=== PATIENT | female | born 1950 | race Caucasian/White ===

== ENCOUNTER 2017-09-23 12:49 | Outpatient (CLI) ==
[2014-11-06 08:28] VITALS: BMI 32.5
--- NOTE | 2017-09-26 11:38 | MAMMO ---
EXAM: Bilateral digital screening mammogram History: Baseline screening Findings: MLO and CC views of bilateral breasts demonstrate scattered fibroglandular breast parenchy ma. CAD was reviewed by the radiologist. Tomosynthesis was performed. Benign bilateral vascular ca lcifications. There are no dominant masses, no suspicious microcalcifications and no architectural d istortions Impression: Benign mammogram. Recommend followup routine screening mammography in 1 year. BIRADS 2
== END 2017-09-23 12:50 | disposition home or self-care (01) ==
LOC: RAD 12:49
PROVIDERS: ATTEND Internal Medicine
DX: Z12.31 Encounter for screening mammogram for malignant neoplasm of breast (principal)
CPT/HCPCS: 77067

== ENCOUNTER 2019-01-29 03:36 | Emergency (ER) ==
[2019-01-29 03:46] VITALS: BP 137/77; TEMP 98.6; BMI 28.5
[2019-01-29] MEDS ORDERED: SODIUM CHLORIDE 1,000 ML IV STA ×2 (04:07→05:38)
[2019-01-29] MEDS ORDERED: MORPHINE 2 MG/ML SYRINGE IVP STA (04:07)
[2019-01-29] MEDS ORDERED: ZOFRAN 4 MG/2 ML IVP STA (04:07)
--- NOTE | 2019-01-29 05:10 | CT ---
Exam: CT of the abdomen and pelvis without contrast History: Abdominal pain Technique: [address] of the abdomen and pelvis without intravascular contrast FINDINGS: The lung bases are clear. No significant liver abnormality. The adrenals, pancreas and s pleen are unremarkable. The stomach and hiatus are unremarkable.Prior cholecystectomy. Kidneys and proximal collecting system are unremarkable. The appendix is not seen. The cecum is mobile and loca darrell just right of midline. There is mild fluid distension of small intestine and colon. Atheroscler otic calcification of the aorta without aneurysm. Abundance of central mesenteric lymph nodes withou t pathologic enlargement. Prior hysterectomy. Nondistended urinary bladder. Fluid distension of sigmoid colon. No pelvic fat inflammation. No acute findings of the skeleton. Impression: 1. No bowel or urinary obstruction is seen. 2. Mild fluid distension of colon and small intestine, nonspecific. Correlate for possible enteriti s and diarrhea. 3. Abundance of mesenteric lymph nodes without pathologic enlargement, nonspecific. Similar finding s on 11/06/2014.
[2019-01-29] MEDS ORDERED: DILAUDID 0.5 MG/0.5 ML SYRINGE IVP STA (05:38)
--- NOTE | 2019-01-29 05:54 | ED.PDOC ---
General ED Provider: Dr. KELTON CARMONA-ER Chief Complaint: Diarrhea Stated Complaint: dakotah had nausea and diarrrhea and my belly hurts Time Seen by Physician: 03:40 Mode of Arrival: Walk-In Information Source: Patient Exam Limitations: No limitations Primary Care Provider: ADELINA GILL Nursing and Triage Documentation Reviewed and Agree: Yes Does patient meet sepsis criteria?: No System Inflammatory Response Syndrome: Not Applicable Sepsis Protocol: For patient's 13 years and over: Temp is 96.8 and below OR 101 and greater Pulse >90 BPM Resp >20/minute Acutely Altered Mental Status Are patient's symptoms suggestive of a new infection, such as: -Pneumonia -Skin, Soft Tissue -Endocarditis -UTI -Bone, Joint Infection -Implantable Device -Acute Abdominal Infection -Wound Infection -Meningitis -Blood Stream Catheter Infection -Unknown GI Complaint Exam - Vomiting/Diarrhea Complaint/Exam Onset/Duration: for several hours Symptoms Are: Still present Episodes of Vomiting over last 24 Hours: 0 Initial Severity: Mild Current Severity: Moderate Character of Diarrhea: Reports: Watery Aggravating: Reports: Food Alleviating: Reports: None Associated Signs and Symptoms: Reports: Abdominal pain, Cramping Recent Positive Test: No Non-GI Risk Factors: Reports: None Surgical Obstruction Risk Factors: Reports: None Abdominal Findings: Present: None Differential Diagnoses: Dehydration, Viral Gastroenteritis, Bacterial Gastroenteritis Review of Systems - Review Of Systems Constitutional: Reports: No symptoms Eyes: Reports: No symptoms Ears, Nose, Mouth, Throat: Reports: No symptoms Respiratory: Reports: No symptoms Cardiac: Reports: No symptoms GI: Reports: Abdominal pain, Diarrhea, Nausea : Reports: No symptoms Musculoskeletal: Reports: No symptoms Skin: Reports: No symptoms Neurological: Reports: No symptoms Endocrine: Reports: No symptoms Hematologic/Lymphatic: Reports: No symptoms All Other Systems: Reviewed and Negative Past Medical History - Past Medical History Previously Healthy: Yes Endocrine: Reports: Unknown Cardiovascular: Reports: Unknown Respiratory: Reports: Unknown Hematological: Reports: Unknown Gastrointestinal: Reports: Unknown Genitourinary: Reports: Unknown Neuro/Psych: Reports: Unknown Musculoskeletal: Reports: Unknown Cancer: Reports: Unknown Last Menstrual Period: UNKNOWN - Surgical History General Surgical History: Reports: Unknown - Family History Family History: Reports: Unknown - Social History Smoking Status: Never smoker Hx Substance Use: No Alcohol Screening: Occasionally - Immunizations Tetanus Shot up to Date: (UNKNOWN) Physical Exam - Physical Exam Appearance: Well-appearing, No pain distress, Well-nourished Eyes: JOYCE, EOMI, Conjunctiva clear ENT: Ears normal, Nose normal, Oropharynx normal Neck: Supple Respiratory: Airway patent, Breath sounds clear, Breath sounds equal, Respirations nonlabored Cardiovascular: RRR GI/: Soft, Nontender, No masses, Bowel sounds normal, No Organomegaly Musculoskeletal: Normal strength, ROM intact, No edema, No calf tenderness Skin: Warm, Dry, Normal color Neurological: Sensation intact, Motor intact, Reflexes intact, Cranial nerves intact, Alert, Oriented Psychiatric: Affect appropriate, Mood appropriate Interpretation - Radiology Interpretation Radiology Interpretation By: Radiologist Radiology Results: Negative Exam Interpreted: CT Scan - EKG Interpretation Time of EKG #1: 05:54 Rate: Normal Rhythm: Sinus Ectopy: None Wall: NL ST Segment: Normal Interpretation: nsr Re-Evaluation - Re-Evaluation Time of Re-Evaluation: 05:54 Status: Improved Vital Signs Stable: Yes Pain Level: 1 Appearance: NAD Lungs: Clear Skin: Warm and Dry Neuro: Alert and Oriented X3 CV: RRR Critical Care Note - Critical Care Note Total Time (mins): 0 Course - Course Hematology/Chemistry: 01/29/19 04:15 01/29/19 04:45 Orders, Labs, Meds: Lab Review 01/29/19 01/29/19 01/29/19 03:55 04:15 04:40 WBC 7.81 RBC 4.73 Hgb 13.8 Hct 41.7 MCV 88.2 MCH 29.2 MCHC 33.1 RDW Coeff of Malcom 13.5 Plt Count 192 Immature Gran % (Auto) 0.3 Neut % (Auto) 65.2 Lymph % (Auto) 21.5 Emmons % (Auto) 11.9 H Eos % (Auto) 0.8 Baso % (Auto) 0.3 Immature Gran # (Auto) 0.0 Neut # (Auto) 5.1 Lymph # (Auto) 1.7 Emmons # (Auto) 0.9 Eos # (Auto) 0.1 Baso # (Auto) 0.0 Sodium Potassium Chloride Carbon Dioxide Anion Gap BUN Creatinine Estimated GFR (MDRD) BUN/Creatinine Ratio Glucose Calcium Total Bilirubin AST ALT Alkaline Phosphatase Total Creatine Kinase Troponin I Total Protein Albumin Globulin Albumin/Globulin Ratio Amylase Lipase Urine Color Yellow Urine Clarity Cloudy Urine pH 5.0 Ur Specific Carson 1.025 Urine Protein Trace Urine Glucose (UA) Negative Urine Ketones 1+ Urine Blood Negative Urine Nitrite Negative Urine Bilirubin 1+ Urine Urobilinogen 0.2 Ur Leukocyte Esterase 1+ Urine Microscopic RBC 0-2 Urine Microscopic WBC 2-5 Ur Squamous Epith Cells 5-10 Amorphous Sediment Trace Urine Bacteria Trace Urine Mucus Trace Influ A Molecular Assay Negative by naat Influ B Molecular Assay Negative by naat 01/29/19 04:45 WBC RBC Hgb Hct MCV MCH MCHC RDW Coeff of Malcom Plt Count Immature Gran % (Auto) Neut % (Auto) Lymph % (Auto) Emmons % (Auto) Eos % (Auto) Baso % (Auto) Immature Gran # (Auto) Neut # (Auto) Lymph # (Auto) Emmons # (Auto) Eos # (Auto) Baso # (Auto) Sodium 139.2 Potassium 4.24 Chloride 102.6 Carbon Dioxide 28.0 Anion Gap 12.84 BUN 14.8 Creatinine 0.75 Estimated GFR (MDRD) 77.00 BUN/Creatinine Ratio 19.73 Glucose 114.6 H Calcium 8.58 Total Bilirubin 0.65 AST 56.6 H ALT 49.7 H Alkaline Phosphatase 54.4 Total Creatine Kinase 40.1 Troponin I < 0.012 Total Protein 7.19 Albumin 4.66 Globulin 2.53 Albumin/Globulin Ratio 1.84 Amylase 55.3 Lipase 124.9 Urine Color Urine Clarity Urine pH Ur Specific Carson Urine Protein Urine Glucose (UA) Urine Ketones Urine Blood Urine Nitrite Urine Bilirubin Urine Urobilinogen Ur Leukocyte Esterase Urine Microscopic RBC Urine Microscopic WBC Ur Squamous Epith Cells Amorphous Sediment Urine Bacteria Urine Mucus Influ A Molecular Assay Influ B Molecular Assay Orders Category Date Time Status EKG-(ED ONLY) Stat CARDIO 01/29/19 04:06 Completed ED IV/MEDIPORT/POWERPORT .ONCE EMERGENCY 01/29/19 04:07 Active AMYLASE Stat LAB 01/29/19 04:45 Completed CBC W/ AUTO DIFF Stat LAB 01/29/19 04:15 Completed COMPREHENSIVE METABOLIC PANEL Stat LAB 01/29/19 04:45 Completed CREATINE KINASE Stat LAB 01/29/19 04:45 Completed FLU A/B MOLECULAR Stat LAB 01/29/19 04:40 Completed LIPASE Stat LAB 01/29/19 04:45 Completed MOLECULAR GROUP A STREP Stat LAB 01/29/19 04:40 Completed TROPONIN I Stat LAB 01/29/19 04:45 Completed URINALYSIS C & S IF INDICATED Stat LAB 01/29/19 03:55 Completed 0.9 % Sodium Chloride [Saline Flush] MEDS 01/29/19 04:07 Ordered 1 syr IVF PRN PRN Hydromorphone HCl [Dilaudid 0.5 mg/0.5 ml Syringe] MEDS 01/29/19 05:38 Discontinued 0.5 mg IVP ONCE STA Morphine Sulfate [Morphine 2 mg/ml Syringe] MEDS 01/29/19 04:07 Discontinued 2 mg IVP ONCE STA Ondansetron HCl/Pf [Zofran 4 mg/2 ml] MEDS 01/29/19 04:07 Discontinued 4 mg IVP ONCE STA Sodium Chloride 0.9% [Sodium Chloride] 1,000 ml MEDS 01/29/19 04:07 Discontinued IV BOLUS Sodium Chloride 0.9% [Sodium Chloride] 1,000 ml MEDS 01/29/19 05:[address] ABDOMEN/PELVIS WO CONTRAST Stat RADS 01/29/19 04:08 Completed Medications Generic Name Dose Route Start Last Admin Trade Name Freq PRN Reason Stop Dose Admin Sodium Chloride 1,000 mls @ 1,000 mls/hr 01/29/19 05:38 01/29/19 05:41 Sodium Chloride IV 01/29/19 06:37 1,000 mls/hr BOLUS STA Administration Sodium Chloride 1 syr 01/29/19 04:07 01/29/19 04:24 Saline Flush IVF 1 syr PRN PRN Administration To flush IV Discontinued Medications Generic Name Dose Route Start Last Admin Trade Name Freq PRN Reason Stop Dose Admin Hydromorphone HCl 0.5 mg 01/29/19 05:38 01/29/19 05:43 Dilaudid 0.5 Mg/0.5 Ml Syringe IVP 01/29/19 05:39 0.5 mg ONCE STA Administration Sodium Chloride 1,000 mls @ 1,000 mls/hr 01/29/19 04:07 01/29/19 04:23 Sodium Chloride IV 01/29/19 05:06 1,000 mls/hr BOLUS STA Administration Morphine Sulfate 2 mg 01/29/19 04:07 01/29/19 04:26 Morphine 2 Mg/Ml Syringe IVP 01/29/19 04:08 2 mg ONCE STA Administration Ondansetron HCl 4 mg 01/29/19 04:07 01/29/19 04:25 Zofran 4 Mg/2 Ml IVP 01/29/19 04:08 4 mg ONCE STA Administration Vital Signs: Temp Pulse Resp BP Pulse Ox 01/29/19 03:37 98.6 F 85 18 137/77 96 Departure - Departure Time of Disposition: 06:03 Disposition: HOME SELF-CARE Discharge Problem: Enteritis Instructions: Enteritis (ED) Condition: Good Pt referred to PMD for follow-up: Yes IPMP verified?: No Additional Instructions: no diary products for 3 days---librax q 8hrs prn cramping #21---zofran 4mg q 4hrs prn nausea #6---f/u with pcp if not improving in 24hrs Allergies/Adverse Reactions: Allergies Penicillins Adverse Reaction (Verified 01/29/19 03:46) Rash Home Medications: Ambulatory Orders Lisinopril 20 mg PO DAILY 03/25/15 Aspirin [Aspir 81] 81 mg PO DAILY 09/06/18 Diazepam 5 mg PO TID PRN 09/06/18 Docusate Sodium [Colace] 200 mg PO DAILY PRN 09/06/18 Meclizine HCl 25 mg PO TID PRN 09/06/18 Escitalopram Oxalate [Lexapro] 20 mg PO DAILY 01/29/19 Disposition Discussed With: Patient, Family
== END 2019-01-29 06:30 | disposition home or self-care (01) ==
LOC: ED 03:36
DX: R19.7 Diarrhea, unspecified (principal); R11.0 Nausea; R10.9 Unspecified abdominal pain; R25.2 Cramp and spasm; K52.9 Noninfective gastroenteritis and colitis, unspecified
CPT/HCPCS: 36415; 80053; 81001; 82150; 82550; 83690; 84484; 85025; 87015; 87045; 87493; 87502; 87651; 87899; 93005; 93010; 96361; 96374; 96375; 99283